=== PATIENT | female | born 2000 | race Caucasian/White ===

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

== ENCOUNTER 2019-05-20 11:18 | Emergency (ER) | payer OTHER ==
[~2019-05-20] VITALS: Ht 172.7 cm; Wt 54.5 kg
[~2019-05-20 11:18] MED LIST: TOPROL XL 50MG50 MG PO
[2019-05-20 11:39] VITALS: TEMP 98
[2019-05-20 12:24] LABS: BASO # 0.1 (0.0-0.2); BASO % 0.8 % (0.0-2.0); EOS # 0.4 (0.0-0.7); EOS % 3.6 % (0-4.0); GRAN # 7.6 (1.4-6.5); GRAN % 72.1 % (42.2-75.2); HEMATOCRIT 42.3 % (35.0-45.0); HEMOGLOBIN 14.6 g/dl (12.0-15.0); LYMPH # 1.8 (1.2-3.4); LYMPH % 17.2 % (20.0-51.0); MEAN CELL VOLUME 100 fl (80.0-95.0); MEAN CORPUSCULAR HEMOGLOBIN 35 pg (26.0-32.0); MEAN CORPUSCULAR HGB CONC 35 g/dl (33.0-37.0); MEAN PLATELET VOLUME 10.5 fl (7.4-10.4); MONO # 0.6 (0.1-0.6); MONO % 5.9 % (1.7-9.3); PLATELET COUNT 276 K/mm3 (130-400); RED BLOOD COUNT 4.23 M/mm3 (4.10-5.30); REDCELL DISTRIBUTION WIDTH-CV 12.3 % (11.5-14.5)
[2019-05-20 12:35] LABS: CALCIUM 9.2 mg/dL (8.4-10.2); CREATININE, serum 0.76 (0.52-1.25); POTASSIUM 3.8 mmol/L (3.4-5.0)
[2019-05-20 13:16] VITALS: BP 115/65; PULSE 70
== END 2019-05-20 13:18 | disposition home or self-care (01) ==
LOC: COL.ER 11:18
PROVIDERS: Emergency Medicine
DX: T49.0X1A Poisoning by local antifungal, anti-infective and anti-inflammatory drugs, accidental (unintentional), initial encounter (principal)

== ENCOUNTER 2019-05-20 23:28 | Emergency (ER) | payer SELFPAY ==
[~2019-05-20] VITALS: Ht 172.7 cm; Wt 54.5 kg
[2019-05-20 23:33] VITALS: BP 125/76; TEMP 98.7
[2019-05-21 00:42] VITALS: PULSE 59
== END 2019-05-21 00:42 | disposition home or self-care (01) ==
LOC: COL.ER 23:28
DX: S83.92XA Sprain of unspecified site of left knee, initial encounter (principal); V89.2XXA Person injured in unspecified motor-vehicle accident, traffic, initial encounter
CPT/HCPCS: L1846